=== PATIENT | male | born 1970 | race Caucasian/White ===

== ENCOUNTER 2020-10-27 14:30 | Emergency (ER) | payer SELFPAY ==
[2020-10-27 14:40] VITALS: BP 134/84; PULSE 74; RESP 16; TEMP 36.4; O2SAT 98; BMI 27.5
--- NOTE | 2020-10-27 14:57 | DI.CT.S_ITS ---
PROCEDURE: CT FACIAL BONES WO CON INDICATIONS: trauma with head/face pain TECHNIQUE: Noncontrast 2.5 mm thick axial images acquired from the mandible through the frontal sinuses, with coronal and sagittal reformatting. For radiation dose reduction, the following was used: automated exposure control, adjustment of mA and/or kV according to patient size. COMPARISON: None. FINDINGS: Image quality: Excellent. Bones and teeth: Orbital abez are intact. Sinus baez show no fracture or deformity. Nasal bones and septum are intact. Visualized portions of the mandible demonstrate no fractures or subluxation. Zygomatic arches are intact. Pterygoid plates are intact. Visualized portions of the skull base and auditory canals are intact. Sinuses: Paranasal sinuses are aerated, without fluid levels, mucosal thickening, or mucoceles. Mastoid air cells are aerated. Soft tissues: Mild right periorbital facial soft tissue swelling. No enlarged lymph nodes. No soft tissue lacerations or debris. Vascular: Visualized vascular structures appear normal in the absence of contrast. Bony vascular foramina and canals are intact. IMPRESSION: No fracture. Dictated by: Lore Pulido MD, PhD on 10/27/2020 at 15:50 Approved by: Lore Pulido MD, PhD on 10/27/2020 at 15:55
--- NOTE | 2020-10-27 14:58 | DI.CT.S_ITS ---
PROCEDURE: CT HEAD/BRAIN WO CON INDICATIONS: trauma head injury TECHNIQUE: Noncontrast 4.5 mm thick angled axial sections acquired from the foramen magnum to the vertex, with coronal and sagittal reformats. For radiation dose reduction, the following was used: automated exposure control, adjustment of mA and/or kV according to patient size. COMPARISON: [facility], CT, CT FACIAL BONES WO CON, 10/27/2020, 15:24. FINDINGS: Image quality: Excellent. CSF spaces: Basal cisterns are patent. No extra-axial fluid collections. Ventricles are normal in size and shape. Brain: No midline shift. No intracranial masses or hemorrhage. Oglesby-white matter interface is normal. Skull and face: Calvarium and visualized facial bones are intact, without suspicious lesions. Sinuses: Visualized sinuses and mastoids are clear. IMPRESSION: No acute intracranial disease process. Dictated by: Lore Pulido MD, PhD on 10/27/2020 at 15:47 Approved by: Lore Pulido MD, PhD on 10/27/2020 at 15:49
--- NOTE | 2020-10-27 14:58 | DI.CT.S_ITS ---
PROCEDURE: CT CERVICAL SPINE WO CON INDICATIONS: trauma TECHNIQUE: Noncontrast 3 mm thick sections acquired from the skull base to the T4 level. Sagittal and coronal reformats were then constructed. For radiation dose reduction, the following was used: automated exposure control, adjustment of mA and/or kV according to patient size. COMPARISON: None. FINDINGS: Image quality: Excellent. Bones: No fractures or dislocations. Moderate to severe degenerative disc disease at C6-C7. Mild bilateral facet arthropathy scattered in cervical spine. Visualized superior ribs are intact. Soft tissues: Prevertebral soft tissues are normal in thickness. No paravertebral hematomas. No apical pneumothoraces. IMPRESSION: No fractures. Degenerative changes as described. Dictated by: Ricky Gatica M.D. on 10/27/2020 at 14:50 Approved by: Ricky Gatica M.D. on 10/27/2020 at 15:00
[2020-10-27 16:12] LABS: Add Manual Diff / Slide Review NO; Basophils Absolute Auto 0 /uL (0-100); Basophils Percent Auto 0.7 % (0-2); Eosinophils Absolute Auto 100 /uL (0-450); Eosinophils Percent Auto 1.8 % (2-4); Hematocrit 40.9 % (41-53); Hemoglobin 13.4 g/dL (13.5-17.5); Lymphocytes Absolute Auto 1700 /uL (1100-4500); Lymphocytes Percent Auto 28.6 % (25-40); Mean Corpuscular HGB Conc 32.8 % (30-36); Mean Corpuscular Hemoglobin 28.3 PG (26-34); Mean Corpuscular Volume 86.2 fL (80-100); Monocytes Absolute Auto 700 /uL (0-900); Monocytes Percent Auto 11.8 % (3-14); Neutrophils Absolute Auto 3400 /uL (1500-7000); Neutrophils Percent Auto 57.1 % (50-75); Platelet Count 231 X10^3/uL (150-400); Red Blood Cell Count 4.74 X10^6/uL (4.5-5.9); Red Cell Distribution Width 15.9 % (11.6-14.8); White Blood Cell Count 5.9 X10^3/uL (4.5-11.0)
[2020-10-27 16:25] LABS: Alanine Aminotransferase 22 IU/L (<50); Albumin 4.1 g/dL (3.5-5.0); Albumin Globulin Ratio 1.5 (1.0-2.8); Alkaline Phosphatase 65 U/L (38-126); Aspartate Aminotransferase 35 IU/L (17-59); BUN Creatinine Ratio 16.7 (6-22); Bilirubin Total 0.5 mg/dL (0.2-1.3); Blood Urea Nitrogen 14 mg/dL (9-20); Calcium 9.2 mg/dL (8.4-10.2); Carbon Dioxide 23 mmol/L (22-32); Chloride 106 mmol/L (98-107); Creatine Kinase 330 U/L (55-170); Estimated Glomerular Filt Rate > 60.0 mL/min (>60); Globulin 2.8 g/dL (1.7-4.1); Glucose 87 mg/dL (70-100); Potassium 4.4 mmol/L (3.4-5.1); Sodium 139 mmol/L (137-145); Total Protein 6.9 g/dL (6.3-8.2)
[2020-10-27 16:37] LABS: NT-proBNP (BNP-Adult 18+) 57 pg/mL (<125); Troponin I < 0.012 ng/mL (0.01-0.034)
[2020-10-27 16:40] LABS: CKMB % Relative Index 0.7 % (1.5-5.0); Creatine Kinase MB 2.23 ng/mL (<2.37); HEMOLYSIS 28 (0-50)
[2020-10-27 17:08] VITALS: BP 132/86; PULSE 66; O2SAT 99
[2020-10-27 17:30] VITALS: BP 112/66; PULSE 68; O2SAT 97
[2020-10-27 18:00] VITALS: BP 116/69; PULSE 61; O2SAT 97
--- NOTE | 2020-10-27 18:23 | ED.GENADULT ---
HPI - General Adult General Chief complaint: Trauma Stated complaint: head injury after fainting 10/25/20 Time Seen by Provider: 10/27/20 14:53 Mode of arrival: Family Vehicle History of Present Illness HPI narrative: Patient is an otherwise healthy 50-year-old male here for evaluation of injuries that he sustained when 2 days ago while he was skateboarding he states that he went up the side of the ramp and then passed out. He states that he fell hitting the right side of his head on the ground. He then lost consciousness. Was not wearing a helmet. Reports no other injuries from the event. He did not come in to be evaluated at the time of the event. He has had some bruising over the right side of the face since then. He did have some visual changes immediately after the event but that has since resolved. Related Data Allergies Allergy/AdvReac Type Severity Reaction Status Date / Time codeine Allergy Hallucinati Verified 10/27/20 14:52 ng Review of Systems Constitutional Constitutional: Reports as per HPI Eyes Eyes: Reports as per HPI ENT Ears, Nose, Mouth, and Throat: Reports as per HPI Cardiovascular Cardiovascular: Denies chest pain and Denies dyspnea Respiratory Respiratory: Denies dyspnea Gastrointestinal Gastrointestinal: Denies abdominal pain and Denies vomiting Genitourinary Genitourinary: Reports system reviewed and no additional complaints, except as documented Musculoskeletal Musculoskeletal: Reports system reviewed and no additional complaints, except as documented Integumentary/Breasts Skin/Breast: Reports as per HPI Neurologic Neurologic: Reports as per HPI Hematologic/Lymphatic On Anticoagulants: No Allergic/Immunologic Allergic/Immunologic: Reports system reviewed and no additional complaints, except as documented Patient History Medical History Healthy adult Social History Smoking Status: Former smoker Smoking Status: Former smoker Substance Use Type: does not use and former substance user Exam Initial Vital Signs Initial Vital Signs: Vital Signs Temperature 97.6 F 10/27/20 14:40 Pulse Rate 74 10/27/20 14:40 Respiratory Rate 16 10/27/20 14:40 Blood Pressure 134/84 10/27/20 14:40 Pulse Oximetry 98 10/27/20 14:40 Const General: cooperative, healthy appearing, comfortable, well developed and well groomed HENMT Head: contusion (Around right eye) Nose: external nose normal Face and sinus: other (Contusion around the right eye) Mouth: oral mucosae normal Eyes Periorbital: periorbital findings abnormal right periorbital ecchymosis Chest Chest: normal inspection of the chest Resp Effort & Inspection: normal respiratory effort Cardio Rate: regular rate GI Inspection: normal to inspection Skin Other: Contusion with a superficial laceration around the right eye. Neuro General: patient alert, patient awake, patient oriented x3 and moves all extremities Extrem General: normal to inspection Psych Appearance: grossly normal and well kempt Scores GCS Miracle coma scale eye opening: Spontaneous Jasper coma scale verbal response: Orientated Jasper coma scale motor response: Obey commands Jasper coma scale total score: 15 Course Orders Ordered: ED Orders 10/27/20 18:13 EKG-12 Lead Stat Vital Signs Vital signs: Vital Signs - 8 hr 10/27/20 17:30 10/27/20 18:00 Pulse Rate 68 61 Blood Pressure 112/66 116/69 Pulse Oximetry 97 97 Medical Decision Making Lab Data Lab results reviewed: Yes I reviewed the patient's lab results. Result diagrams: 10/27/20 16:05 10/27/20 16:05 Labs: Lab Results 10/27/20 10/27/20 Range/Units 16:05 16:05 WBC 5.9 (4.5-11.0) X10^3/uL RBC 4.74 (4.5-5.9) X10^6/uL Hgb 13.4 L (13.5-17.5) g/dL Hct 40.9 L (41-53) % MCV 86.2 (80-100) fL MCH 28.3 (26-34) PG MCHC 32.8 (30-36) % RDW 15.9 H (11.6-14.8) % Plt Count 231 (150-400) X10^3/uL Neut % (Auto) 57.1 (50-75) % Lymph % (Auto) 28.6 (25-40) % [place] % (Auto) 11.8 (3-14) % Eos % (Auto) 1.8 L (2-4) % Baso % (Auto) 0.7 (0-2) % Neut # (Auto) 3400 (6757-0580) /uL Lymph # (Auto) 1700 (8793-3879) /uL [place] # (Auto) 700 (0-900) /uL Eos # (Auto) 100 (0-450) /uL Baso # (Auto) 0 (0-100) /uL Sodium 139 (137-145) mmol/L Potassium 4.4 (3.4-5.1) mmol/L Chloride 106 (98-107) mmol/L Carbon Dioxide 23 (22-32) mmol/L BUN 14 (9-20) mg/dL Creatinine 0.84 (0.66-1.25) mg/dL Estimated GFR > 60.0 (>60) mL/min BUN/Creatinine Ratio 16.7 (6-22) Glucose 87 (70-100) mg/dL Calcium 9.2 (8.4-10.2) mg/dL Total Bilirubin 0.5 (0.2-1.3) mg/dL AST 35 (17-59) IU/L ALT 22 (<50) IU/L Alkaline Phosphatase 65 (38-126) U/L Total Creatine Kinase 330 H (55-170) U/L CK-MB (CK-2) 2.23 (<2.37) ng/mL CK-MB (CK-2) Rel Index 0.7 L (1.5-5.0) % Troponin I < 0.012 (0.01-0.034) ng/mL NT-Pro-B Natriuret Pep 57 (<125) pg/mL Total Protein 6.9 (6.3-8.2) g/dL Albumin 4.1 (3.5-5.0) g/dL Globulin 2.8 (1.7-4.1) g/dL Albumin/Globulin Ratio 1.5 (1.0-2.8) Imaging Data CT face: Radiologist's Impression: [address] [id number] Scan ReportSigned Patient: Dutch GibsonMR#: [id number]: 1970Acct:[id number]/Sex: 50 / MDate of Service: 10/27/20Loc: EDAccession Number: [id number] Procedure: CT facial bones wo con Ordering Provider: Alfredo Burleson D.O. PROCEDURE: CT FACIAL BONES WO CON INDICATIONS: trauma with head/face pain TECHNIQUE: Noncontrast 2.5 mm thick axial images acquired from the mandible through the frontal sinuses, with coronal and sagittal reformatting. For radiation dose reduction, the following was used: automated exposure control, adjustment of mA and/or kV according to patient size. COMPARISON: None. FINDINGS: Image quality: Excellent. Bones and teeth: Orbital baez are intact. Sinus baez show no fracture or deformity. Nasal bones and septum are intact. Visualized portions of the mandible demonstrate no fractures or subluxation. Zygomatic arches are intact. Pterygoid plates are intact. Visualized portions of the skull base and auditory canals are intact. Sinuses: Paranasal sinuses are aerated, without fluid levels, mucosal thickening, or mucoceles. Mastoid air cells are aerated. Soft tissues: Mild right periorbital facial soft tissue swelling. No enlarged lymph nodes. No soft tissue lacerations or debris. Vascular: Visualized vascular structures appear normal in the absence of contrast. Bony vascular foramina and canals are intact. IMPRESSION: No fracture. Dictated by: Lore Pulido MD, PhD on 10/27/2020 at 15:50 Approved by: Lore Pulido MD, PhD on 10/27/2020 at 15:55 CT - cervical spine: Radiologist's Impression: [address] Scan ReportSigned Patient: Dutch GibsonMR#: [id number]: 1970Acct:[id number]/Sex: 50 / MDate of Service: 10/27/20Loc: EDAccession Number: [id number] Procedure: CT cervical spine wo con Ordering Provider: Alfredo Burleson D.O. PROCEDURE: CT CERVICAL SPINE WO CON INDICATIONS: trauma TECHNIQUE: Noncontrast 3 mm thick sections acquired from the skull base to the T4 level. Sagittal and coronal reformats were then constructed. For radiation dose reduction, the following was used: automated exposure control, adjustment of mA and/or kV according to patient size. COMPARISON: None. FINDINGS: Image quality: Excellent. Bones: No fractures or dislocations. Moderate to severe degenerative disc disease at C6-C7. Mild bilateral facet arthropathy scattered in cervical spine. Visualized superior ribs are intact. Soft tissues: Prevertebral soft tissues are normal in thickness. No paravertebral hematomas. No apical pneumothoraces. IMPRESSION: No fractures. Degenerative changes as described. Dictated by: Ricky Gatica M.D. on 10/27/2020 at 14:50 Approved by: Ricky Gatica M.D. on 10/27/2020 at 15:00 CT scan - head: Radiologist's Impression: [address] [id number] Scan ReportSigned Patient: Dutch GibsonMR#: [id number]: 1970Acct:[id number]/Sex: 50 / MDate of Service: 10/27/20Loc: EDAccession Number: [id number] Procedure: CT head/brain wo con Ordering Provider: Alfredo Burleson D.O. PROCEDURE: CT HEAD/BRAIN WO CON INDICATIONS: trauma head injury TECHNIQUE: Noncontrast 4.5 mm thick angled axial sections acquired from the foramen magnum to the vertex, with coronal and sagittal reformats. For radiation dose reduction, the following was used: automated exposure control, adjustment of mA and/or kV according to patient size. COMPARISON: [facility], CT, CT FACIAL BONES WO CON, 10/27/2020, 15:24. FINDINGS: Image quality: Excellent. CSF spaces: Basal cisterns are patent. No extra-axial fluid collections. Ventricles are normal in size and shape. Brain: No midline shift. No intracranial masses or hemorrhage. Oglesby-white matter interface is normal. Skull and face: Calvarium and visualized facial bones are intact, without suspicious lesions. Sinuses: Visualized sinuses and mastoids are clear. IMPRESSION: No acute intracranial disease process. Dictated by: Lore Pulido MD, PhD on 10/27/2020 at 15:47 Approved by: Lore Pulido MD, PhD on 10/27/2020 at 15:49 ECG Data Attestation: I personally reviewed and interpreted this ECG as follows: Interpretation: Sinus rhythm Ventricular rate is 64 Normal axis Normal QRS Normal QTC No ST T wave changes MDM Narrative Medical decision making narrative: Alert oriented x3. CT scans of head face and neck were all unremarkable. Does have contusion around his right eye. EKG is unremarkable. Labs unremarkable. He was not wearing a helmet. We did discuss concussions. We discussed care instructions with regard to the contusions around his right eye. We can hold on further workup for now. Will have patient contact his primary doctor for a follow-up. He is given strict return precautions. She expressed understanding and agreement. Discharge Plan Departure Patient Disposition: Home Clinical Impression: Syncope, Contusion of eye, right Instructions: DI for Syncope in Adults (Fainting) Activity Restrictions/Additional Instructions: Your workup here in the emergency department is very reassuring. The CT scans do not show any signs of a fracture. I recommend that you contact your primary doctor for further workup. I also recommend that you wear a helmet in the future while skateboarding. Return to the emergency department for any new or worsening symptoms
== END 2020-10-27 18:29 | disposition home or self-care (01) ==
PROVIDERS: Emergency Medicine; Emergency Provider Emergency Medicine
DX: R55 Syncope and collapse (principal); S00.11XA Contusion of right eyelid and periocular area, initial encounter; V00.131A Fall from skateboard, initial encounter
CPT/HCPCS: 36415; 70450; 70486; 72125; 80053; 82550; 82553; 83880; 84484; 85025; 93005; 99284